=== PATIENT | female | born 1980 | race Caucasian/White ===

== ENCOUNTER 2024-02-24 18:15 | Outpatient (CLI) | payer BC, SELFPAY ==
[2024-02-27 11:15] LABS: HPV Source Cervix; HPV, High Risk by TMA Not Detected
[2024-03-09 17:39] LABS: Pap Test Reviewed by Path Done
== END 2024-02-24 18:16 | disposition home or self-care (01) ==
PROVIDERS: Visit Provider Physician Assistant
DX: Z01.419 Encounter for gynecological examination (general) (routine) without abnormal findings (principal); Z12.4 Encounter for screening for malignant neoplasm of cervix
CPT/HCPCS: 87624; 87625; 88141; 88142

== ENCOUNTER 2024-03-02 07:22 | Outpatient (CLI) | payer BC, SELFPAY ==
--- NOTE | 2024-03-02 07:45 | CRLHL7_ITS ---
For Patients: As a result of the Century Cures Act, medical imaging exams and procedure reports are released immediately into your electronic medical record. You may view this report before your referring provider. If you have questions, please contact your health care provider. BILATERAL SCREENING MAMMOGRAM WITH COMPUTER-AIDED DETECTION AND TOMOSYNTHESIS TECHNIQUE: CC and MLO views were obtained. These mammographic images have been obtained using full-field digital technique. These mammographic images were interpreted with the benefit of computer-aided detection. Breast Tomosynthesis was used in this interpretation. COMPARISON FILM: 09/29/21, 04/06/16. FINDINGS: There are scattered areas of fibroglandular density. IMPRESSION: There is no radiographic evidence for malignancy. ASSESSMENT: BI-RADS Category 1: Negative RECOMMENDATION: Routine screening mammogram in 1 year. A lay language report of this examination will be provided to the patient. Taco Knight M.D. Diagnostic Radiologist [email or web address] SP/Dictated by: Taoc Knight MD @ 03/09/2024 11:13:00 AM (Electronically Signed)
== END 2024-03-02 07:23 | disposition home or self-care (01) ==
LOC: MAMMO 07:22
PROVIDERS: Visit Provider Physician Assistant
DX: Z12.31 Encounter for screening mammogram for malignant neoplasm of breast (principal)
CPT/HCPCS: 77063; 77067; 80061; 82947; 84443

== ENCOUNTER 2024-03-02 07:58 | Outpatient (CLI) | payer BC, SELFPAY | END 2024-03-02 07:59 | disposition home or self-care (01) | LOC: NFLDREF 03-03 15:53 | PROVIDERS: Visit Provider Physician Assistant | DX: Z13.1 Encounter for screening for diabetes mellitus (principal); Z13.6 Encounter for screening for cardiovascular disorders | CPT/HCPCS: 80061; 82947; 84443 ==

== ENCOUNTER 2024-06-03 15:12 | Outpatient (CLI) | payer OTHER, SELFPAY | END 2024-06-03 15:13 | disposition home or self-care (01) | LOC: NFLDREF 06-14 23:22 | PROVIDERS: Visit Provider Nurse Practitioner | DX: N30.01 Acute cystitis with hematuria (principal); B95.7 Other staphylococcus as the cause of diseases classified elsewhere | CPT/HCPCS: 87086 ==

== ENCOUNTER 2024-06-14 18:14 | Emergency (ER) | payer OTHER, SELFPAY ==
--- OUTSIDE RECORDS SUMMARY | 2024-06-14 18:16 | XMS_ITS | Encounter Summary ---
[facility] Organization [facility] Address [address] [place] [address] Care Team Providers Care Marketing Forecaster Name Role Phone Taco Quiroz MD Primary Care Provider Encounter Details Date Type Department Care Team (Late st Contact Info) Description 06/04/2024 E-Visit [facility] [address] [place] [address] Mychart, [place] [address] Social History Tobacco Use Types Packs/Day Years Used Date Smoking Tobacco: Never Smokeless Tobacco: Never Alcohol Use Standard Drinks/Week Comments Not Currently 0 (1 standard drink = 0.6 oz pur e alcohol) occassionally PHQ-2 Answer Date Recorded PHQ-2 Score 0 11/16/2021 Sex and Gender Information Value Date Recorded Sex Assigned at Not on file Gender Identity Not on file Sexual Orientation Not on file documented as of this encounter Plan of Treatment Not on file documented as of this encounter Visit Diagnoses Not on filedocumented in this encounter Care Teams Marketing Forecaster Relationship Specialty [place] [address] [place] [address] PCP - General 12/12/15 documented as of this encounter
--- OUTSIDE RECORDS SUMMARY | 2024-06-14 18:16 | XMS_ITS | Clinical Summary ---
Author Organization [facility] Address [address] [address] Care Team Providers Care Learning Support Aide Name Role Phone Taco Quiroz MD Primary Care Provider [phone] Source Comments You are receiving this document as you are listed as the primary care provider,follow-up provider, or the patient has been referred to you for consultation.This is in compliance with the Medicare and[facility] Hospital[facility] EHR Incentive Program,which states Providers who transition their patient to another setting of careor provider of care or refers their patient to another provider of care shouldprovide summary care record for each transition of care or referral. [employer] Allergies Active Allergy Reactions Criticality Noted Date Comments Cefuroxime Rash 01/26/2005 Levofloxacin Rash 03/02/2009 red rash on skin Soybean Oil Breathing Difficulty High 07/07/2013 SOB with unrefined soybeal oil or soy sauce [place]riticum Aestivum Unknown 07/07/2013 Medications Medication Sig Dispensed Refills Start Date End Date Status omega-3 fatty acids (MAXEPA,FISHOIL) 1000 MG capsule Indications: PN: 09/29/2007 Act quan Cholecalciferol (VITAMIN D3) 5000 UNITS TABS 5,000 Units. Active cycloSPORINE (RESTASIS) 0.05 % eye drop emulsion 11/20/2017 Active ALBUterol sulfate HFA 108 (90 Base) MCG/ACT inhaler INHALE 1-2 PUFFS BY MOUTH EVERY 4 HOURS NEEDED FOR WHEEZING. 1 Each 11/16/2019 Active predniSONE (DELTASONE) 5 MG tablet Take 1 Tablet (5 mg) by mouth daily. 08/18/2020 Active Spacer/Aero-Holdi ng Chambers (COMPACT SPACE CHAMBER) CEE use with inhaler 06/16/2021 Activ e Pediatric Multivitamins-Fl (MULTI-VITAMIN/FL UORIDE) 0.25 MG/ML Take 1 Tablet by mouth daily. Active ACTEMRA ACTPEN 162 MG/0.9ML SOAJ Inject subcutaneously. 02/26/2022 Active tobramycin (TOBREX) 0.3 % eye drop solution Place 1-2 Drops into right eye every 4 hours. 5 mL 07/20/2022 Active budesonide-formot frances (SYMBICORT) 80-4.5 MCG/ACT inhalerIndication s:Moderate persistent asthma without complication (HRC) INHALE 2 PUFFS by mouth TWO TIMES A DAY. RINSE MOUTH/GARGLE AFTER USE. 10.2 g 04/29/2023 Active tirzepatide-weigh t management (ZEPBOUND) 2.5 MG/0.5ML pen injectionIndicati ons:Morbid obesity with body mass index (BMI) of 45.0 to 49.9 in adult (HRC) Inject 2.5 mg subcutaneously one time weekly for 4 weeks 2 mL 06/05/2024 Active tirzepatide-weigh t management (ZEPBOUND) 5 MG/0.5ML pen injection Inject 5 mg subcutaneously one time weekly for 4 weeks Do not start before July 03, 2024. 2 mL 07/03/2024 Active tirzepatide-weigh t management (ZEPBOUND) 7.5 MG/0.5ML pen injection Inject 7.5 mg subcutaneously one time weekly for 4 weeks Do not start before July 31, 2024. 2 mL 07/31/2024 Active tirzepatide-weigh t management (ZEPBOUND) 10 MG/0.5ML pen injection Inject 10 mg subcutaneously one time weekly for 4 weeks Do not start before August 28, 2024. 2 mL 08/28/2024 Active tirzepatide-weigh t management (ZEPBOUND) 12.5 MG/0.5ML pen injection Inject 12.5 mg subcutaneously one time weekly for 4 weeks Do not start before September 25, 2024. 2 mL 09/25/2024 Active tirzepatide-weigh t management (ZEPBOUND) 15 MG/0.5ML pen injection Inject 15 mg subcutaneously one time weekly for 4 weeks Do not start before October 23, 2024. 2 mL 11 10/23/2024 Active tirzepatide-weigh t management (ZEPBOUND) 2.5 MG/0.5ML pen injectionIndicati ons:Morbid obesity with body mass index (BMI) of 45.0 to 49.9 in adult ([facility]) Inject 0.5 mL (2.5 mg) subcutaneously once every week. 2 mL 01/03/2024 06/05/19 25 Discontinued tirzepatide-weigh t management (ZEPBOUND) 5 MG/0.5ML pen injection Inject 0.5 mL (5 mg) subcutaneously once every week. Do not start before January 31, 2024. 2 mL 01/31/2024 06/05/19 25 Discontinued tirzepatide-weigh t management (ZEPBOUND) 7.5 MG/0.5ML pen injection Inject 0.5 mL (7.5 mg) subcutaneously once every week. Do not start before February 28, 2024. 2 mL 02/28/2024 06/05/19 25 Discontinued tirzepatide-weigh t management (ZEPBOUND) 10 MG/0.5ML pen injection Inject 0.5 mL (10 mg) subcutaneously once every week. Do not start before March 27, 2024. 2 mL 03/27/2024 06/05/19 25 Discontinued tirzepatide-weigh t management (ZEPBOUND) 12.5 MG/0.5ML pen injection Inject 0.5 mL (12.5 mg) subcutaneously once every week. Do not start before April 24, 2024. 2 mL 04/24/2024 06/05/19 25 Discontinued tirzepatide-weigh t management (ZEPBOUND) 15 MG/0.5ML pen injection Inject 0.5 mL (15 mg) subcutaneously once every week. Do not start before May 22, 2024. 2 mL 05/22/2024 06/05/19 25 Discontinued Active Problems Problem Noted Date Diagnosed Date Rhe[facility]oid [facility] with negative rheumatoid factor 07/21/2018 Sjogren's syndrome 07/21/2018 Pain of both shoulder joints 03/29/2015 Pain in joint, shoulder region 04/15/2012 Sinusitis, chronic 09/29/2007 Overview (01/02/2017): Sinusitis Recurrent Allergic rhinitis 01/26/2005 Overview (01/02/2017): Rhinitis Allergic NOS Asthma 01/26/2005 Overview (12/19/2021): Pulmonary function test 12/2021 Resolved Problems Problem Noted Date Diagnosed Date Resolved Date Morbid obesity with body mas s index (BMI) of 45.0 to 49.9 in adult 01/02/2023 06/05/2024 Class 3 drug-induced obesity without serious comorbidity with body mass index (BMI) of 50.0 to 59.9 in adult 09/07/2020 06/05/2024 Encounters for administrative purposes 10/14/2012 11/16/2021 Overview (01/02/2017): Encounters for unspecified administrative purpose Encounters for administrative purposes 07/22/2012 11/16/2021 Overview (01/02/2017): Encounters for unspecified administrative purpose Encounters Date Type Department Care Team Description 06/05/2024 8:00 AM CALL BOX WIRER Telemedicine [facility] [place] [address] [place] [address] Payal Ortega PA-C Moderate persistent asthma, unspecified whether complicated (HRC) (Primary Dx); Morbid obesity with body mass index (BMI) of 45.0 to 49.9 in adult (HRC); Sjogren's syndrome, with unspecified organ involvement (HRC); 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) 06/04/2024 E-Visit [facility] [address] [place] [address] Mychart, Generic Provider from Last 3 Months Immunizations Name Administration Dates Next Due Flu Vac (3+ yrs) 02/24/2011 Flu Vac Preserv Free (3+yrs) 02/24/2011,02/12/20 08 Fluzone Qiv Multidose Vial 0.25 (6-35 Mos) 03/09 Influenza IIV4 (Quadrivalent) 0.5mL (85961) 02/10 Influenza, Unspecified Formulation 02/12/2008 Moderna Monovalent Booster 12+ 12/20/2021 PCV20 ([id number]) 12/20/2021 Pfizer Monovalent 12+ Purple Top 02/24/2021,08/11,07/29/2020 TDAP (ADACEL) 09/29/2007 Td 10/26/2003 Td (7+ yrs) 07/21/2018 Td Adult, Unspecified Formulation 07/21/2018 Tdap 2019,08/19/2012 Family History Medical History Relation Name Comments Hemochromatosis Paternal Grandmother Relation Name Status Comments Paternal Grandmother Alive Social History Tobacco Use Types Packs/Day Years Used Date Smoking Tobacco: Never Smokeless Tobacco: Never Tobacco Cessation:Counseling Given: Not Answered Alcohol Use Standard Drinks/Week Comments Not Currently 0 (1 standard drink = 0.6 oz pur e alcohol) occassionally PHQ-2 Answer Date Recorded PHQ-2 Score 0 11/16/2021 Sex and Gender Information Value Date Recorded Sex Assigned at Not on file Gender Identity Not on file Sexual Orientation Not on file Last Filed Vital Signs Vital Sign Reading Time Taken Comments Blood Pressure 125/73 06/05/2024 7:59 AM CALL BOX WIRER Pulse 88 01/02/2023 2:59 PM CDT Temperature 36.2 C (97.1 F) 12/18/2022 12:34 PM CDT Respiratory Rate 18 07/20/2022 3:00 PM CALL BOX WIRER Oxygen Saturation 100% 07/20/2022 3:00 PM CALL BOX WIRER Inhaled Oxygen Concentration - - Weight 113.4 kg (250 lb) 06/05/2024 7:59 AM CALL BOX WIRER Height 157.5 cm (5' 2) 06/05/2024 7:59 AM CALL BOX WIRER Body Mass Index 45.73 06/05/2024 7:59 AM CALL BOX WIRER Plan of Treatment Health Maintenance Due Date Last Done Comments HepB (1) 09/22/1998 Cervical Cancer Screening 05/16/20222019 (Completed), 06/12/2017 (Completed), 09/29/2007, Additional history exists Mammogram 09/29/2022 09/29/2021, 04/06/2016 Asthma ACT 11/15/2022 11/15/2021 (Comp leted), 09/29/2018, 07/21/2018, Additional history exists Adult Preventive Visit 11/17/2023 11/16/2021 COVID-19 Vaccine ( season) 2024 12/20/2021, 02/24/2021, 08/25/2020, Additional history exists Influenza (#1) 2024 04/26/2022, 02/10, 03/09/2020, Additional history exists Diabetes Screening- (based on age and BMI) 03/16/2025 03/16/2022, 11/16/2021 DTaP/Tdap/Td (6 - Tdap) 09/22/2029 09/23/19, 07/21/2018, 07/21/2018, Additional history exists Zoster/Shingles (1 of 2) 09/22/2029 HIV Screening (Preventive Services) Completed 11/21/2007, 04/27/2005 Hep C Screening (Preventive Services) Completed 11/16/2021 Pneumococcal Completed 12/20/2021 HPV Vaccine Aged Out No longer eligi ble based on patient's age to complete this topic HepA Aged Out No longer eligi ble based on patient's age to complete this topic Hib Aged Out No longer eligi ble based on patient's age to complete this topic IPV (Polio) Aged Out No longer eligi ble based on patient's age to complete this topic MCV4 Aged Out No longer eligi ble based on patient's age to complete this topic Procedures Procedure Name Priority Date/Time Associated Diagnosis Comments HGB A1C Routine 03/16/2022 8:59 AM CDT Screening for diabetes mellitus HEPATITIS C ANTIBODY, WITH REFLEX Routine 11/16/2021 8:53 AM CDT Need for hepatitis C screening test MM MAMMOGRAM SCREENING BILAT W 3D NICK W CAD Routine 09/29/2021 3:42 PM CDT HIV ANTIBODY Routine 11/21/2007 4:47 PM CDT ANATOMICAL PATH LIQUID BASED Routine 09/29/2007 9:41 AM CDT from Last 3 Months or Most Recently Relevant to Health Maintenance Results * Hgb A1c (03/16/2022 8:59 AM CDT) Hemoglobin A1C 5.1 <=5.6 % 03/16/2022 5:32 PM CDT [facility] Blood Venipuncture / Unknown 03/16/2022 8:59 AM CDT 03/16/2022 8:59 AM CDT Payal Ortega PA-C LAB_1 [facility] [address] [phone] * Hepatitis C Antibody, with Reflex (11/16/2021 8:53 AM CDT) Hepatitis C Antibody Negative (Non Reactive) Negative (Non Reactive) 11/16/2021 3:22 PM CDT [facility] Comment:Antibodies to HCV no t detected. Does not exclude the possiblity of exposure to HCV. Blood Venipuncture / Unknown 11/16/2021 8:53 AM CDT 11/16/2021 8:53 AM CDT Noble Sanon MD LAB_1 [facility] [address] * MM Mammogram Screening Bilat W 3D Nick W CAD (09/29/2021 3:42 PM CDT) Anatomical Region Laterality Modality Breast Bilateral Mammography Impressions 09/29/2021 4:01 PM CDT : ACR BI-RADS Category 1: Negative RECOMMENDATION: Follow Up Imaging in 12 months - Bilateral The results and recommendations of this examination will be communicated to the patient. Narrative 09/29/2021 4:01 PM CDT MM MAMMOGRAM SCREENING BILAT W 3D NICK W CAD performed on 09/29/21 Compared to: 04/06/2016 [facility] Mammogram Diag Bilat W Nick FINDINGS: Bilateral screening mammogram was performed with the assistance of Computer-Aided Detection and breast tomosynthesis. The breasts have scattered areas of fibroglandular density. There is no radiographic evidence of malignancy. Taco Quiroz MD RAD ROMEL * HIV Antibody (11/21/2007 4:47 PM CDT) HIV 1/HIV 2 Non Reac Non Reac HP CONVERSION 11/21/2007 4:47 PM CDT Melanie Carvajal APRN, CNM LAB_1 Performing Organization Address [facility] Co de Phone Number HP CONVERSION * Pap Smear (09/29/2007 9:41 AM CDT) PAP Smear Liquid Based SEE TEXT No normal range HP CONVERSION Comment: Patient: EBONI TROTTER CERVICAL CYTOLOGY REPORT Pathology # [id number] Date Obtained: Date Received: CYTOLOGIC IMPRESSION: Negative for intraepithelial lesion or malignancy. Verified 10/02/07 by: MB (electronic signature) ADDITIONAL DATA LMP: CLINICAL HIST LIQUID BASED PAP CERVICAL SPECIMEN ADEQUACY: Satisfactory. ENDOCERVICAL CELLS: Present. 09/29/2007 9:41 AM CDT Gwen Carrero LAB_1 Performing Organization Address [facility] Co de Phone Number HP CONVERSION from Last 3 Months or Most Recently Relevant to Health Maintenance Care Teams Learning Support Aide Relationship Specialty [place] [address] [place] [address] PCP - General 12/12/15
--- OUTSIDE RECORDS SUMMARY | 2024-06-14 18:16 | XMS_ITS | Encounter Summary ---
Author Organization [facility] Address [address] [place] [id number] Care Team Providers Care Unemployment Claims Adjudicator Name Role Phone Taco Quiroz MD Primary Care Provider [phone] Reason for Referral * Medication Prior Authorization - Pending Review Specialty Diagnoses / Procedures Referred By Dung bojorquez Referred To Contact Diagnoses Morbid obesity with body mass index (BMI) of 45.0 to 49.9 in adult (HRC) Payal Ortega PA-C [address] [place] [address] Referral ID Status Reason Start Date Expiration Date V isits Requested Visits Authorized [id number] Pending Review 1 1 H MENDER Reason for Visit * Reason Comments Video Visit Follow-up Encounter Details Date Type Department Care Team (Late st Contact Info) Description 06/05/2024 8:00 AM CLOTH MENDER Telemedicine [facility] [address] [facility] [address] [place] [address] Payal Ortega PA-C [address] [place], [place] [phone] Moderate persistent asthma, unspecified whether complicated (HRC) (Primary Dx); Morbid obesity with body mass index (BMI) of 45.0 to 49.9 in adult (HRC); Sjogren's syndrome, with unspecified organ involvement (HRC); 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) Social History Tobacco Use Types Packs/Day Years [...] on file documented as of this encounter Last Filed Vital Signs Vital Sign Reading Time Taken Comments Blood Pressure 125/73 06/05/2024 7:59 AM CLOTH MENDER Pulse - - Temperature - - Respiratory Rate - - Oxygen Saturation - - Inhaled Oxygen Concentration - - Weight 113.4 kg (250 lb) 06/05/2024 7:59 AM CLOTH MENDER Height 157.5 cm (5' 2) 06/05/2024 7:59 AM CLOTH MENDER Body Mass Index 45.73 06/05/2024 7:59 AM CLOTH MENDER documented in this encounter Progress Notes * Payal Ortega PA-C - 06/05/2024 8:00 AM CST MEDICAL WEIGHT MANAGEMENT PROGRESS NOTE CHIEF COMPLAINT: Tawnya Damon is a 43 y.o. female with chronic medical problems including asthma, rheumatoid arthritis, Sjogren syndrome, on chronic prednisone, who seeks to treat the following obesity-associated medical conditions by aggressive management of weight: obesity Intake 03/14/22 INTERIM HISTORY: Weight at last visit: 269 lbs Current weight: 250 lbs (-19 lbs) Feeling well overall. More energy noted. Was up to Zepbound 10 mg weekly in April, but has not been able to obtain medication since then due to insurance change. Reports her new insurance will cover Zepbound but needs a PA. Still swimming at the [facility] when she can. Has free weights at home but doesn't use regularly. RD no longer in network. Previous medication trials for weight loss: - Topiramate for migraines: brain fog - Phentermine: no weight loss benefit - Metformin: can't recall why she was on this but reports not tolerating - Wellbutrin/naltrexone: limited efficacy What are you doing for exercise?: Walking, Swimming, Stationary bike [facility] Assessment: Updating Your Care Team 1. Have you been working on any lifestyle goals since your last visit?: Yes 4. How many hours of sleep to you get per night?: 6-7 hours 7. Do you drink sugar-sweetened beverages (regular soda or sweetened coffee or tea)?: Yes 8. What would you like to discuss today?: Follow up/ prior auth for meds Post-surgical information: 5. Does the patient snack?: Pos The patient notes the following snacking habits: Fruit/ crackers/ nuts/ cheese Bariatric Weight History and Calculations Weight History Age at Onset of Obesity: 19 Highest Adult Weight: 290 lb Preferred Weight: 160 lb Lowest Adult Weight: 160 lb At what weight would you not be disappointed?: 210 lb Starting Weight: 290 lb Current Weight: 250 lb Height (in): 62 Weight Calculations Excess Weight: 173 lb Current Weight Loss: 40 lb Goal Weight: 117 lb Starting BMI: 53.15 Percent Exess Weight Loss: 23 Current BMI: 45.82 Percent Totoal Body Weight Loss: 14 WEIGHT HISTORY: Attributes struggles to genetics, , inactivity secondary to joint pain, and prednisone use. Since May, she has been needing more bursts of prednisone for ongoing symptoms. Awaiting results from testing with fixing carpenter. She felt her healthiest around 170 lbs. Her current weight is her highest. In the past was able to maintain weight with lifestyle changes. Current Medications with the potential side effect of weight gain include the following: Prednisone (weight gain with this) Patient denies increased anxiety, palpitations, tremors, difficulty sleeping, and personal histories of: glaucoma, nephrolithiasis, kidney disease, pancreatitis, and seizure. Denies personal or family history of medullary thyroid carcinoma or MEN type 2. REVIEW OF SYSTEMS: Control: tubal ligation Patient is experiencing the following symptoms/problems: GERD/Heartburn, Joint Pain MEDICATIONS: Outpatient Medications Prior to Visit Medication Sig Dispense Refill ACTEMRA ACTPEN 162 MG/0.9ML SOAJ Inject subcutaneously. ALBUterol sulfate HFA 108 (90 Base) MCG/ACT inhaler INHALE 1-2 PUFFS BY MOUTH EVERY 4 HOURS NEEDED FOR WHEEZING. 1 Each 0 budesonide-formoterol (SYMBICORT) 80-4.5 MCG/ACT inhaler INHALE 2 PUFFS by mouth TWO TIMES A DAY. RINSE MOUTH/GARGLE AFTER USE. 10.2 g 0 Cholecalciferol (VITAMIN D3) 5000 UNITS TABS 5,000 Units. cycloSPORINE (RESTASIS) 0.05 % eye drop emulsion omega-3 fatty acids (MAXEPA,FISHOIL) 1000 MG capsule Indications: PN: Pediatric Multivitamins-Fl (MULTI-VITAMIN/FLUORIDE) 0.25 MG/ML Take 1 Tablet by mouth daily. predniSONE (DELTASONE) 5 MG tablet Take 1 Tablet (5 mg) by mouth daily. Spacer/Aero-Holding Chambers (COMPACT SPACE CHAMBER) CEE use with inhaler tirzepatide-weight management (ZEPBOUND) 10 MG/0.5ML pen injection Inject 0.5 mL (10 mg) subcutaneously once every week. Do not start before March 27, 2024. 2 mL 0 tirzepatide-weight management (ZEPBOUND) 12.5 MG/0.5ML pen injection Inject 0.5 mL (12.5 mg) subcutaneously once every week. Do not start before April 24, 2024. 2 mL 0 tirzepatide-weight management (ZEPBOUND) 15 MG/0.5ML pen injection Inject 0.5 mL (15 mg) subcutaneously once every week. Do not start before May 22, 2024. 2 mL 11 tirzepatide-weight management (ZEPBOUND) 2.5 MG/0.5ML pen injection Inject 0.5 mL (2.5 mg) subcutaneously once every week. 2 mL 0 tirzepatide-weight management (ZEPBOUND) 5 MG/0.5ML pen injection Inject 0.5 mL (5 mg) subcutaneously once every week. Do not start before January 31, 2024. 2 mL 0 tirzepatide-weight management (ZEPBOUND) 7.5 MG/0.5ML pen injection Inject 0.5 mL (7.5 mg) subcutaneously once every week. Do not start before February 28, 2024. 2 mL 0 tobramycin (TOBREX) 0.3 % eye drop solution Place 1-2 Drops into right eye every 4 hours. 5 mL 0 No facility-administered medications prior to visit. ALLERGIES: Allergies Allergen Reactions Soybean Oil Breathing Difficulty SOB with unrefined soybeal oil or soy sauce Cefuroxime Rash Levofloxacin Rash red rash on skin Triticum Aestivum Unknown PHYSICAL EXAM: VITAL SIGNS: BP 125/73 Ht 1.575 m (5' 2) Wt 113.4 kg (250 lb) BMI 45.73 kg/m?? Wt Readings from Last 3 Encounters: 06/05/24 113.4 kg (250 lb) 01/03/24 122 kg (269 lb) 05/16/23 122 kg (269 lb) GENERAL: The patient appears in no acute distress. PSYCHIATRIC: Alert and oriented x 3. Affect is appropriate. Labs: None available at time of appointment. ASSESSMENT/PLAN: We will continue to treat the following obesity-associated medical conditions and conditions exacerbated by or contributing to weight gain by aggressive management of weight: ICD-10-CM 1. Moderate persistent asthma, unspecified whether complicated ([facility]) J45.40 2. Morbid obesity with body mass index (BMI) of 45.0 to 49.9 in adult ([facility]) E66.01 Z68.42 3. Sjogren's syndrome, with unspecified organ involvement ([facility]) M35.00 4. Rheumatoid arthritis of multiple sites with negative rheumatoid factor ([facility]) M06.09 Plan for management includes the following: -Nutrition: Meet with nutrition: find out if she has coverage for RD services. . -Exercise: Continue swimming. Try using free weights at home. -Medications: Restart Zepbound titration. New PA initiated for new insurance. Follow up with me: in 5-6 months. Quick schedule link sent to patient. Payal Ortega PA-C Billing based on: Time Total time for the visit was 20 minutes including, but not limited to, [id number] time spent reviewing records, counseling, and coordination of care. This visit was conducted via video. Location of clinician clinic. Location of patient home. At the beginning of the visit, I discussed with the patient/parent that this visit is a telehealth visit that will be billed to their insurance. I reviewed potential benefits, risks, and confidentiality of telehealth visits. explained that the appropriateness of telehealth visits is determined by the provider and that patient may need to be seen in clinic in the future. They consented to proceed. H MENDER documented in this encounter Nursing Notes * Marion Mcarthur CMA - 06/05/2024 8:00 AM CST Patient has completed mobile check in process. Last seen on 01/03/24 with recorded weight of 269 lbs. Weight History: Bariatric Weight History and Calculations Weight History Age at Onset of Obesity: 19 Highest Adult Weight: 290 lb Preferred Weight: 160 lb Lowest Adult Weight: 160 lb At what weight would you not be disappointed?: 210 lb Starting Weight: 290 lb Current Weight: 250 lb Height (in): 62 Weight Calculations Excess Weight: 173 lb Current Weight Loss: 40 lb Goal Weight: 117 lb Starting BMI: 53.15 Percent Exess Weight Loss: 23 Current BMI: 45.82 Percent Totoal Body Weight Loss: 14 Measurements Do you have a scale? YES - 250 lb. Do you have a BP cuff? YES - 125/73 Eating patterns Patient is experiencing the following symptoms/problems: GERD/Heartburn, Joint Pain Medications: reviewed by patient. Compliance: Yes Side effects: NO Patient would like to discuss: Follow up/ prior auth for meds Marion Mcarthur CMA 7:59 AM 06/05/2024 H MENDER documented in this encounter Plan of Treatment Not on file documented as of this encounter Visit Diagnoses Diagnosis Moderate persistent asthma, unspecified whether complicated (HRC)- Primary Morbid obesity with body mass index (BMI) of 45.0 to 49.9 in adult (HRC) Sjogren's syndrome, with unspecified organ involvement (HRC) 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) documented in this encounter Care Teams Unemployment Claims Adjudicator Relationship Specialty [place] [address] [place] [address] PCP - General 12/12/15 documented as of this encounter
--- OUTSIDE RECORDS SUMMARY | 2024-06-14 18:17 | XMS_ITS | Continuity of Care Document ---
Author Organization [facility] Address [address] [place] [address] Phone Care Team Providers Care Poundmaster Name Role Phone Dayna Dhillon MD Unavailable Unavailable Allergies, Adverse Reactions, Alerts Substance Reaction Status Criticality CEFUROXIME AXETIL Active No Informa tion Medications Medication Instructions Dosage Effective Dates (start - stop) Status Comments nabumetone 750 mg tablet take 1 Tablet by oral route 2 times every day with food - Active Switching from Piroxicam to Nabumetone Medrol 4 mg tablet take 2 tablets by oral route every day - Active cycloSPORINE Ophthalmic Emulsion 0.05 % PLACE 1 DROP INTO EACH EYE BY OPHTHALMIC ROUTE ONCE DAILY. - Active ACTEMRA ACTPEN 162MG/0.9ML SOAJ INJECT THE CONTENTS OF 1 AUTOINJECTOR PEN UNDER THE SKIN ONCE WEEKLY - Active SYMBICORT (unknown strength) inhale 2 puff by inhalation route 2 times every day in the morning and evening Not Available - Active Vitamin B-12 250 mcg tablet - Active Vitamin D3 5,000 unit tablet take 1 Tablet by Oral route every day 1 Tablet - Active Ventolin HFA 90 mcg/actuation aerosol inhaler inhale 2 puff by inhalation route every 4 - 6 hours as needed - Active multivitamin tablet take 1 tablet by oral route every day with food - Active Procedures Procedure Date Office/Outpatient Visit, Est Office/Outpatient Visit, Est Office/Outpatient Visit, Est Office/Outpatient Visit, Est Office/Outpatient Visit, Est Office/Outpatient Visit, Est Office/Outpatient Visit, Est Office/Outpatient Visit, Est Routine Venipuncture Assay Of Serum Albumin Assay Of Creatinine Transferase (Ast) (Sgot) Alanine Amino (Alt) (Sgpt) Complete Cbc WAuto Diff Wbc Tixagev and cilgav inj Tixagev and cilgav inj Office/Outpatient Visit, Est Routine Venipuncture Assay Of Serum Albumin Assay Of Creatinine Transferase (Ast) (Sgot) Alanine Amino (Alt) (Sgpt) Vitamin D 25 Hydroxy Complete Cbc WAuto Diff Wbc Office/Outpatient Visit, Est Routine Venipuncture Rbc Sed Rate, Nonautomated Assay Of Serum Albumin Assay Of Creatinine Transferase (Ast) (Sgot) Alanine Amino (Alt) (Sgpt) CReactive Protein Vitamin D 25 Hydroxy Complete Cbc WAuto Diff Wbc Office/Outpatient Visit, Est Office/Outpatient Visit, Est Office/Outpatient Visit, Est Routine Venipuncture Specimen Handling Assay Of Serum Albumin Assay Of Creatinine Transferase (Ast) (Sgot) Alanine Amino (Alt) (Sgpt) Samson-29-2021 Complete Cbc WAuto Diff Wbc Office/Outpatient Visit, Est Office/Outpatient Visit, Est Office/Outpatient Visit, Est Office/Outpatient Visit, Est Office/Outpatient Visit, Est Office/Outpatient Visit, Est Office/Outpatient Visit, Est Routine Venipuncture Assay Of Serum Albumin Assay Of Creatinine Transferase (Ast) (Sgot) Alanine Amino (Alt) (Sgpt) Assay Of Magnesium Complete Cbc WAuto Diff Wbc Self-Mgmt Educ & Train, 1 Pt Routine Venipuncture Specimen Handling Assay Of Serum Albumin Assay Of Creatinine Transferase (Ast) (Sgot) Alanine Amino (Alt) (Sgpt) Complete Cbc WAuto Diff Wbc Office/Outpatient Visit, Est Office/Outpatient Visit, Est Routine Venipuncture Specimen Handling Assay Of Serum Albumin Assay Of Creatinine Transferase (Ast) (Sgot) Alanine Amino (Alt) (Sgpt) Complete Cbc WAuto Diff Wbc Office/Outpatient Visit, Est Routine Venipuncture Rbc Sed Rate, Nonautomated CReactive Protein Assay Of Serum Albumin Assay Of Creatinine Transferase (Ast) (Sgot) Alanine Amino (Alt) (Sgpt) Complete Cbc WAuto Diff Wbc No Charge Nurse Visit Office/Outpatient Visit, Est Routine Venipuncture Specimen Handling Assay Of Serum Albumin Assay Of Creatinine Transferase (Ast) (Sgot) Alanine Amino (Alt) (Sgpt) Tb Test, Cell Immun Measure Complete Cbc WAuto Diff Wbc Office/Outpatient Visit, Est Routine Venipuncture Assay Of Serum Albumin Assay Of Creatinine Transferase (Ast) (Sgot) Alanine Amino (Alt) (Sgpt) Complete Cbc WAuto Diff Wbc Office/Outpatient Visit, Est Office/Outpatient Visit, New Routine Venipuncture Complete Cbc WAuto Diff Wbc Rbc Sed Rate, Nonautomated Assay Of Creatinine Assay Of Ck (Cpk) CReactive Protein Antinuclear Antibodies CCP Antibody Rheumatoid Factor, IGM Rheumatoid Factor, IGG, IGA Advance Directives Directive Yes / No Effective Date File Name No Information Encounters Encounter Description Practice Location Reason(s) For Visit Diagnoses Date Provider Providers Copied on Encounter [facility], [address], [place], [address], tel:[phone] [facility] , No Information 5 Jacquie Mcintosh. [facility] [address], [place], [address], [place]. tel:[phone] Office/Outpa tient Visit, Est [facility], [address], [place], [address], [place] tel:[phone] Telehealth Sjogren syndrome with keratoconjun ctivitisOthe r prison (current) drug therapyRheum atoid arthritis w/o rheumatoid factor, multiple sitesRas 4 Jacquie Mcintosh. [facility] [address], [place], [address], [place]. tel:[phone] Referring Provider: Dayna Fajardo, [facility] [address], [place], [address]. tel:[phone] [facility], [address], [place], [address], [place] tel:[phone] [facility] , No Information 4 Jacquie Mcintosh. [facility] [address], [place], [address], [place]. tel:[phone] [facility], [address], [place], [address], [place] tel:[phone] [facility] , No Information 4 Jacquie Mcintosh. [facility] [address], [place], [address], [place]. tel:[phone] Office/Outpa tient Visit, Est [facility], [address], [place], [address], [place] tel:[phone] Telehealth Sjogren syndrome with keratoconjun ctivitisOthe r prison (current) drug therapyRayna ud's syndrome without gangreneRheu matoid arthritis w/o rheumatoid factor, multiple sitesPsorias is 4 Jacquie Mcintosh. [facility] [address], [place], [address], [place]. tel:[phone] Referring Provider: Dayna Fajardo, [facility] [address], [place], [address]. tel:[phone] Office/Outpa tient Visit, Est [facility], [address], [place], [address], [place] tel:[phone] [facility] Pain in right hipSjogren syndrome with keratoconjun ctivitisOthe r prison (current) drug therapyRayna ud's syndrome without gangreneOthe r psoriatic arthropathy 4 Jacquie Mcintosh. [facility] [address], [place], [address], [place]. tel:[phone] Referring Provider: Dayna Fajardo, [facility] [address], [place], [address]. tel:[phone] Office/Outpa tient Visit, Est [facility], [address], [place], [address], [place] tel:[phone] Telehealth Rheumatoid arthritis without rheumatoid factor, multiple sitesPain in right hipSjogren syndrome with keratoconjun ctivitisOthe r prison (current) drug therapy 4 Jacquie Mcintosh. [facility] [address], [place], [address], [place]. tel:[phone] Referring Provider: Dayna Fajardo, [facility] [address], [place], [address]. tel:[phone] Office/Outpa tient Visit, Est [facility], [address], [place], [address], [place] tel:[phone] Telehealth Rheumatoid arthritis without rheumatoid factor, multiple sitesSjogren syndrome with keratoconjun ctivitisOthe r local company intermodal truck driver (current) drug therapyPain in right hip Sep-0 3 Jacquie Mcintosh. [facility] [address], [place], [address], [place]. tel:[phone] Referring Provider: Dayna Fajardo, [facility] [address], [place], [address]. tel:[phone] Office/Outpa tient Visit, Est [facility], [address], [place], [address], [place] tel:[phone] [facility] Rheumatoid arthritis without rheumatoid factor, multiple sitesOther prison (current) drug therapyPain in left ankleSjogren syndrome with keratoconjun ctivitis 3 Jacquie Mcintosh. [facility] [address], [place], [address], [place]. tel:[phone] Referring Provider: Dayna Fajardo, [facility] [address], [place], [address]. tel:[phone] Office/Outpa tient Visit, Est [facility], [address], [place], [address], [place] tel:[phone] Telehealth Rheumatoid arthritis without rheumatoid factor, multiple sitesItchOth er prison (current) drug therapy 3 Jacquie Mcintosh. [facility] [address], [place], [address], [place]. tel:[phone] Referring Provider: Dayna Fajardo, [facility] [address], [place], [address]. tel:[phone] Office/Outpa tient Visit, Est [facility], [address], [place], [address], [place] tel:[phone] [facility] Rheumatoid arthritis without rheumatoid factor, multiple sitesOther local company intermodal truck driver (current) drug therapyPerso nal history of immunosuppre ssion therapyItch 2 Jacquie Mcintosh. [facility] [address], [place], [address], [place]. tel:[phone] Referring Provider: Dayna Fajardo, [facility] [address], [place], [address]. tel:[phone] [facility], [address], [place], [address], [place] tel:[phone] [facility] Personal history of immunosuppre ssion therapy 2 Jacquie Mcintosh. [facility] [address], [place], [address], [place]. tel:[phone] Referring Provider: Dayna Fajardo, [facility] [address], [place], [address]. tel:[phone] [facility], [address], [place], [address], [place] tel:[phone] [facility] Personal history of immunosuppre ssion therapy Jan-0 2 Jacquie Mcintosh. [facility] [address], [place], [address], [place]. tel:[phone] Office/Outpa tient Visit, Est [facility], [address], [place], [address], [place] tel:[phone] [facility] Rheumatoid arthritis without rheumatoid factor, multiple sitesFatigue Vitamin D deficiency, unspecifiedO ther local company intermodal truck driver (current) drug therapy 2 Jacquie Mcintosh. [facility] [address], [place], [address], [place]. tel:[phone] Referring Provider: Dayna Fajardo, [facility] [address], [place], [address]. tel:[phone] Office/Outpa tient Visit, Est [facility], [address], [place], [address], [place] tel:[phone] [facility] Rheumatoid arthritis without rheumatoid factor, multiple sitesFatigue Vitamin D deficiencyOt her local company intermodal truck driver (current) drug therapy 2 Jacquie Mcintosh. [facility] [address], [place], [address], [place]. tel:[phone] Referring Provider: Dayna Fajardo, [facility] [address], [place], [place], [facility]. tel:[phone] Office/Outpa tient Visit, Est [facility], [address], [place], [address], [place] tel:[phone] Telehealth Rheumatoid arthritis without rheumatoid factor, multiple sitesAcute bronchitisOt her prison (current) drug therapy 2 Jacquie Mcintosh. [facility] [address], [place], [address], [place]. tel:[phone] Referring Provider: Dayna Fjaardo, [facility] [address], [place], [address]. tel:[phone] Office/Outpa tient Visit, Est [facility], [address], [place], [address], [place] tel:[phone] Telehealth Rheumatoid arthritis without rheumatoid factor, multiple sitesOther local company intermodal truck driver (current) drug therapy 1 Jacquie Mcintosh. [facility] [address], [place], [address], [place]. tel:[phone] Referring Provider: Dayna Fajardo, [facility] [address], [place], [address]. [phone] Office/Outpa tient Visit, Est [facility], [address], [place], [address], [place] tel:[phone] [facility] Rheumatoid arthritis without rheumatoid factor, multiple sitesSicca syndrome with keratoconjun ctivitisCoun seling, unspecifiedA bnormal weight gainOther local company intermodal truck driver (current) drug therapy Oct- 1 Jacquie Mcintosh. [facility] [address], [place], [place], [facility], [place]. tel:[phone] Referring Provider: Dayna Fajardo, [facility] [address], [place], [place], [facility]. [phone] Office/Outpa tient Visit, Est [facility], [address], [place], [address], [place] tel:[phone] Telehealth Rheumatoid arthritis without rheumatoid factor, multiple sitesOther prison (current) drug therapy 1 Jacquie Mcintosh. [facility] [address], [place], [address], [place]. tel:[phone] Referring Provider: Dayna Fajardo, [facility] [address], [place], [address]. tel:[phone] Office/Outpa tient Visit, Est [facility], [address], [place], [address], [place] tel:[phone] Telehealth Rheumatoid arthritis without rheumatoid factor, multiple sitesSicca syndrome with keratoconjun ctivitisCoun seling, unspecifiedO ther local company intermodal truck driver (current) drug therapy Feb-0 4-202 1 Jacquie Mcintosh. [facility] [address], [place], [address], [place]. tel:[phone] Referring Provider: Dayna Fajardo, [facility] [address], [place], [address]. tel:[phone] Office/Outpa tient Visit, Est [facility], [address], [place], [address], [place] tel:[phone] Telehealth Rheumatoid arthritis w/o rheumatoid factor, multiple sitesCounsel ing, unspecifiedO ther local company intermodal truck driver (current) drug therapy 0 Jacquie Mcintosh. [facility] [address], [place], [address], [place]. tel:[phone] Referring Provider: Dayna Fajardo, [facility] [address], [place], [address]. tel:[phone] Office/Outpa tient Visit, Est [facility], [address], [place], [address], [place] tel:[phone] Telehealth Rheumatoid arthritis w/o rheumatoid factor, multiple sitesPregnan t stateOther prison (current) drug therapy 0 Jacquie Mcintosh. [facility] [address], [place], [address], [place]. tel:[phone] Referring Provider: Dayna Fajardo, [facility] [address], [place], [address]. tel:[phone] Office/Outpa tient Visit, Est [facility], [address], [place], [address], [place] tel:[phone] [facility] Rheumatoid arthritis w/o rheumatoid factor, multiple sitesCounsel ing, unspecifiedO ther prison (current) drug therapy 9 Jacquie Mcintosh. [facility] [address], [place], [address], [place]. tel:[phone] Referring Provider: Dayna Fajardo, [facility] [address], [place], [address]. tel:[phone] Office/Outpa tient Visit, Est [facility], [address], [place], [address], [place] tel:[phone] [facility] Rheumatoid arthritis w/o rheumatoid factor, multiple sitesOther local company intermodal truck driver (current) drug therapy 9 Jacquie Mcintosh. [facility] [address], [place], [address], [place]. tel:[phone] Referring Provider: Dayna Fajardo, [facility] [address], [place], [address]. tel:[phone] Office/Outpa tient Visit, Est [facility], [address], [place], [address], [place] tel:[phone] [facility] Rheumatoid arthritis w/o rheumatoid factor, multiple sitesSpasmOt her local company intermodal truck driver (current) drug therapy 9 Jacquie Mcintosh. [facility] [address], [place], [address], [place]. tel:[phone] Referring Provider: Dayna Fajardo, [facility] [address], [place], [address]. tel:[phone] [facility], [address], [place], [address], [place] tel:[phone] [facility] Rheumatoid arthritis w/o rheumatoid factor, multiple sitesCounsel ing, unspecifiedF atigueOther prison (current) drug therapy 9 Jacquie Mcintosh. [facility] [address], [place], [address], [place]. tel:[phone] Referring Provider: Dayna Fajardo, [facility] [address], [place], [address]. tel:[phone] Office/Outpa tient Visit, Est [facility], [address], [place], [address], [place] tel:[phone] [facility] No Information 9 Jacquie Mcintosh. [facility] [address], [place], [address], [place]. tel:[phone] Referring Provider: Dayna Fajardo, [facility] [address], [place], [address]. tel:[phone] Office/Outpa tient Visit, Est [facility], [address], [place], [address], [place] tel:[phone] [facility] Rheumatoid arthritis w/o rheumatoid factor, multiple sitesSicca syndrome with keratoconjun ctivitisCoun seling, unspecifiedO ther prison (current) drug therapy 8 Jacquie Mcintosh. [facility] [address], [place], [address], [place]. tel:[phone] Referring Provider: Dayna Fajardo, [facility] [address], [place], [address]. tel:[phone] Office/Outpa tient Visit, Est [facility], [address], [place], [address], [place] tel:[phone] [facility] Seronegative RA, multiple sitesSicca syndrome with keratoconjun ctivitisOthe r local company intermodal truck driver (current) drug therapyBody mass index (BMI) 40.0-44.9, adult Arash- 8 Jacquie Mcintosh. [facility] [address], [place], [address], [place]. tel:[phone] Referring Provider: Dayna Fajardo, [facility] [address], [place], [address]. tel:[phone] [facility], [address], [place], [address], [place] tel:[phone] [facility] , Seronegative RA, multiple sites 8 Lala Lafleur. [facility] [address], [place], [address], [place]. tel:[phone] Referring Provider: Miquel Barrientos, [facility] [address], [place], [address]. tel:[phone] Office/Outpa tient Visit, Est [facility], [address], [place], [address], [place] tel:[phone] [facility] Seronegative RA, multiple sitesSicca syndrome with keratoconjun ctivitisOthe r prison (current) drug therapy 8 Jacquie Mcintosh. [facility] [address], [place], [address], [place]. tel:[phone] Referring Provider: Dayna Fajardo, [facility] [address], [place], [address]. tel:[phone] Office/Outpa tient Visit, Est [facility], [address], [place], [address], [place] tel:[phone] [facility] Seronegative RA, multiple sitesSicca syndrome with keratoconjun ctivitisOthe r prison (current) drug therapy 8 Jacquie Mcintosh. [facility] [address], [place], [address], [place]. tel:[phone] Referring Provider: Dayna Fajardo, [facility] [address], [place], [address]. tel:[phone] Office/Outpa tient Visit, Est [facility], [address], [place], [address], [place] tel:[phone] [facility] Seronegative RA, multiple sitesSicca syndrome with keratoconjun ctivitisOthe r prison (current) drug therapy 7 Jacquie Mcintosh. [facility] [address], [place], [address], [place]. tel:[phone] Referring Provider: Dayna Fajardo, [facility] [address], [place], [address]. tel:[phone] Office/Outpa tient Visit, New [facility], [address], [place], [address], [place] tel:[phone] [facility] Inflammatory polyarthropa thyFatigueSi cca syndrome with keratoconjun ctivitisMyal giaRash Jacquie Mcintosh. [facility] [address], [place], [address], [place]. tel:[phone] Referring Provider: Dayna Fajardo, [facility] [address], [place], [address]. tel:[phone] Family History Family Member Type Diagnosis Age At Onset Maternal grandmother Problem (finding) osteoarthritis Paternal grandfather Problem (finding) diabetes mellit us type 2 Paternal grandmother Problem (finding) hypertension Mother Problem (finding) asthma Sister Problem (finding) hypothyroidism Paternal aunt Problem (finding) hemochromatosis Immunizations Vaccine Date Status Comments COVID-19 Pfizer administered Note: 2020 ; Source: Other Provider Payers Payer name Insurance type Covered democrat ID Authoriza tion(s) [employer] BL [id number] Social History Type Description Quantity Date Captured Comments Sex Female Smoking Status No Information Chief Complaint And Reason For Visit No Information Reason For Referral Reason For Referral No Information Plan Of Treatment Date Type Action Status Goal Lifestyle education regardin g diet completed History Of Present Illness Encounter Date Complaint History Of Prese nt Illness No Information Functional Status Date Functional Assessmen t No Information Instructions Date Instruction Surendra giron Lifestyle education regarding di et Related to Body mass index (BMI) 40.0-44.9, adult Assessments Type Assessment Date No Information Patient Care Teams Name Effective Dates (start - stop) Status Members No Information
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
[2024-06-14 18:44] VITALS: BP 134/81; PULSE 104; RESP 18; TEMP 36.9; O2SAT 98; BMI 45.7
[2024-06-14 19:08] LABS: Appearance Urine Clear (Clear); Bilirubin Urine Negative (Negative); Blood Urine Negative (Negative); Color Urine Yellow (Yellow); Glucose Urine Negative (Negative); Ketones Urine Negative (Negative); Leukocyte Esterase Urine Negative (Negative); Nitrite Urine Negative (Negative); Protein Urine Negative (Negative); Urobilinogen Urine 0.2 (0.2-1.0)
[2024-06-14 19:17] LABS: Bacteria Urine Many; RBC Urine 0-2 (0-2); Squamous Epithelial Cell Urine Many (None-Few); WBC Urine 0-2 (0-5)
--- NOTE | 2024-06-14 19:20 | ED_ITS ---
HPI - General Adult General Chief complaint: Urogenital Problems, Female Stated complaint: UTI complications, abdominal pain Time Seen by Provider: 06/14/24 19:13 History of Present Illness HPI narrative: This 43-year-old female is describing symptoms of dysuria including increased frequency and sense of incomplete voiding. She had similar symptoms a couple weeks ago and was treated with Bactrim. About 3 or 4 days after finishing this medicine her symptoms have returned. She arrives here with normal vital signs except for borderline tachycardia. She does describe diffuse abdominal pain and back pain. Related Data Home Medications ?Medication ?Instructions ?Recorded ?Confirmed tocilizumab 162 mg/0.9 mL mg subcut 04/22/22 06/03/24 subcutaneous pen injector (Actemra ACTPen) budesonide-formoterol HFA 80 2 puff inhalation BID 11/29/22 06/14/24 mcg-4.5 mcg/actuation aerosol inhaler (Symbicort) methylprednisolone 4 mg tablet 4 mg PO BID 02/24/24 06/14/24 multivitamin 1 tab PO QAM 02/24/24 06/14/24 Previous Rx's ?Medication ?Instructions ?Recorded albuterol sulfate 90 mcg/actuation 2 puff inhalation Q4-6H PRN 02/27/24 aerosol inhaler shortness of breath or wheezing #8.5 grams oxybutynin chloride 5 mg 5 mg PO DAILY #20 tabs 06/14/24 tablet,extended release 24 hr Allergies Allergy/AdvReac Type Severity Reaction Status Date / Time cefdinir Allergy Unknown Verified 06/14/24 18:42 cefuroxime Allergy Verified 06/14/24 18:42 levofloxacin Allergy Verified 06/14/24 18:42 Review of Systems Status of ROS: Reports: 10 or more systems reviewed and unremarkable except as noted in History and below Narrative: Constitutional: No fevers, no weight gain or loss. Eyes: No discharge. No vision changes. HENT: No congestion, no sore throat, no ear pain. Cardiovascular: No chest pain, no palpitations. Respiratory: No shortness of breath, no wheezes, no cough. Gastrointestinal: No vomiting, no diarrhea. Genitourinary: Increased frequency and sense of incomplete voiding. Musculoskeletal: Normal range of motion. Skin: No rashes, no pruritis. Neurological: No dizziness, weakness, sensory change, speech change. Endo/Heme/Allergies: No bruising or bleeding. No polydipsia. Pysch: no suicidality, no anxiety, no insomnia. All other systems reviewed and are negative. PFSH PFSH Medical History Normal spontaneous vaginal delivery ?O80 - Encounter for full-term uncomplicated delivery (ICD-10) Migraine headache ?G43.909 - Migraine, unspecified, not intractable, without status migrainosus (ICD-10) History of in vitro fertilization ?Z98.890 - Other specified postprocedural states (ICD-10) Ear pain ?H92.09 - Otalgia, unspecified ear (ICD-10) Sore throat ?J02.9 - Acute pharyngitis, unspecified (ICD-10) Surgical History History of shoulder surgery ?Z98.890 - Other specified postprocedural states (ICD-10) History of tubal ligation ?Z98.51 - Tubal ligation status (ICD-10) Family History Mother Breast cancer, Onset Age: 63 Paternal Grandfather Colon cancer Social History Narrative: Health Care Admin Nonsmoker Rare alcohol use What is your current living situation?: I presently have a place to live Problems where you live: no known problems In the past 12 months, utilities in danger of being shut off: no In past 12 months, lack of transportation kept you from medical appts, meetings, work, or getting things needed for daily living: no In the past 12 mos, have been you worried that your food would run out before you had money to buy more?: never true In the past 12 mos, the food you bought just didn't last and you didn't have money to buy more?: never true Smoking Status: Never smoker Non-prescribed substance use: denies use How often does anyone, including family, friends and others, physically hurt you : never How often does anyone, including family, friends and others, insult or talk down to you: never How often does anyone, including family, friends and others, threaten you with harm: never How often does anyone, including family, friends and others, scream or curse at you: never Exam Narrative: Exam Narrative: Constitutional: Well-developed, well-nourished, no acute distress. HEENT: Normocephalic, atraumatic. Neck: Normal range of motion. Nontender. Supple. Heart: Regular. No murmurs. Normal rate. Intact distal pulses. Lungs: Clear to auscultation. No chest discomfort. No wheezes, rhonchi, or rales. Abdomen: Normal bowel sounds. Diffuse abdominal pain. No rebound tenderness. Genitalia: Deferred. Back: No midline tenderness. Normal range of motion. Extremities: Normal range of motion. No injury. Skin: Intact. No rash. Warm. No erythema or pallor. Neurologic: No altered sensation. No weakness. Alert and oriented. Psychiatric: No suicidality. No anxiety or depression. No insomnia. Nursing notes and vitals signs are reviewed. Const: Vital Signs, click to edit/add: Vital Signs - 24 hr 06/14/24 18:44 Temperature 98.5 F Pulse Rate [Pulse Oximeter] 104 H Respiratory Rate 18 Blood Pressure [Ri ght Upper Arm] 134/81 Pulse Oximetry 98 Oxygen Delivery Me thod Room Air Course Vital Signs Vital signs: Initial Vital Signs Temperature 98.5 F 06/14/24 18:44 Temperature Source Temporal Artery Scan 06/14/24 18:44 Pulse Rate 104 H 06/14/24 18:44 Pulse Rhythm Regular 06/14/24 18:44 Respiratory Rate 18 06/14/24 18:44 Blood Pressure 134/81 06/14/24 18:44 Blood Pressure Mean 98 06/14/24 18:44 Blood Pressure Position Sitting 06/14/24 18:44 Pulse Oximetry 98 06/14/24 18:44 Oxygen Delivery Method Room Air 06/14/24 18:44 Vital Signs Temperature 98.5 F 06/14/24 18:44 Pulse Rate 104 H 06/14/24 18:44 Respiratory Rate 18 06/14/24 18:44 Blood Pressure 134/81 06/14/24 18:44 Pulse Oximetry 98 06/14/24 18:44 Oxygen Delivery Method Room Air 06/14/24 18:44 Temperature 98.5 F 06/14/24 18:44 Pulse Rate 104 H 06/14/24 18:44 Respiratory Rate 18 06/14/24 18:44 Blood Pressure 134/81 06/14/24 18:44 Pulse Oximetry 98 06/14/24 18:44 Oxygen Delivery Method Room Air 06/14/24 18:44 Medical Decision Making MDM Narrative Medical decision making narrative: This patient comes in reporting dysuria symptoms of increased frequency and a sense of incomplete voiding. She also has diffuse abdominal pain and back pain. She has had symptoms like this on and off over the past few weeks and did finish 7 day course of Bactrim which did not provide any relief. This was prescribed after urinalysis that was seen at Urgent Care. The urinalysis did not show sign of infection but she was prescribed this medicine anyway. Culture results then did show E coli but it was not sufficient colonies to establish a true infection. Today her urinalysis also is negative for infection. I did do CT scan of her abdomen and pelvis without contrast and this shows normal findings also. The patient appears to have an overactive bladder without any sign of infection. I did prescribe oxybutynin to attempt to attend to her symptoms and encouraged her to follow-up with her primary physician or OBGYN clinic. Lab Data Labs: Lab Results 06/14/24 Range/Units 18:52 Urine Color Yellow (Yellow) Urine Appearance Clear (Clear) Urine pH 6.0 (5.0-8.5) Ur Specific [place] 1.020 (1.000-1.030) Urine Protein Negative (Negative) Urine Glucose (UA) Negative (Negative) Urine Ketones Negative (Negative) Urine Blood Negative (Negative) Urine Nitrite Negative (Negative) Urine Bilirubin Negative (Negative) Urine Urobilinogen 0.2 (0.2-1.0) Ur Leukocyte Esterase Negative (Negative) Urine RBC 0-2 (0-2) Urine WBC 0-2 (0-5) Ur Squamous Epith Cells Many A (None-Few) Urine Bacteria Many A (None) Imaging Data CT scan - abdomen: Radiologist's impression: 1. No hydronephrosis or obstructive urolithiasis. 2. No acute abdominopelvic pathology. The etiology of the patient`s abdominal or flank pain is not elucidated on this examination. Discharge Plan Discharge Clinical Impression: Overactive bladder Patient Disposition: Home, Self-Care Condition: Stable Additional Instructions: Take medication as directed. Follow-up with primary physician or OBGYN clinic for ongoing management. Return if worsening. Prescriptions: New oxybutynin chloride 5 mg tablet extended release 24hr 5 mg PO DAILY Qty: 20 0RF No Action budesonide-formoterol [Symbicort] 80-4.5 mcg/actuation HFA aerosol inhaler 2 puff inhalation BID albuterol sulfate 90 mcg/actuation HFA aerosol inhaler 2 puff inhalation Q4-6H PRN (Reason: shortness of breath or wheezing) Qty: 8.5 0RF Actemra ACTPen 162 mg/0.9 mL pen injector subcut methylprednisolone 4 mg tablet 4 mg PO BID multivitamin Tablet 1 tab PO QAM Follow Up/Referrals: Provider,Not a Local [Primary Care Provider] - Stand Alone Forms: [facility] Info Instructions
--- NOTE | 2024-06-14 19:26 | CRLHL7_ITS ---
For Patients: As a result of the Century Cures Act, medical imaging exams and procedure reports are released immediately into your electronic medical record. You may view this report before your referring provider. If you have questions, please contact your health care provider. INDICATION: Flank pain. Dysuria. TECHNIQUE: Multiplanar CT examination of the abdomen and pelvis was performed without the use of intravenous contrast. COMPARISON: CT abdomen pelvis 12/10/2015. FINDINGS: Lower chest: No focal consolidation. Normal heart size. No pleural effusions or pneumothorax. Subsegmental atelectasis. Liver: Unremarkable. Gallbladder: Unremarkable. Biliary: Unremarkable. Pancreas: Within normal limits. Spleen: Unremarkable. Adrenal glands: Unremarkable. Renal/ureters/bladder: Normal in size. No obstructive uropathy. No hydronephrosis or obstructive urinary calculi. The ureters appear unremarkable. The bladder is within normal limits. Limited evaluation for renal masses without the use of intravenous contrast. Pelvis: Unremarkable uterus. No adnexal masses. Gastrointestinal: No bowel wall thickening or bowel obstruction. Normal appendix. No significant colonic diverticulosis. Mild colonic stool burden. Vasculature: No aortic aneurysm. No significant atherosclerotic calcifications. Lymph nodes: No pathologic lymphadenopathy by size criteria. Peritoneum: No free fluid or pneumoperitoneum. No drainable fluid collections. Abdominal wall/soft tissues: Unremarkable. Bones: No acute osseous abnormalities. IMPRESSION: 1. No hydronephrosis or obstructive urolithiasis. 2. No acute abdominopelvic pathology. The etiology of the patient`s abdominal or flank pain is not elucidated on this examination. Please note that all CT scans at this facility use dose modulation, iterative reconstruction, and/or weight-based dosing when appropriate to reduce radiation dose to as low as reasonably achievable. Dictated by Yeison Hernandez MD @ 06/14/2024 8:07:51 PM (Electronically Signed)
--- OUTSIDE RECORDS SUMMARY | 2024-06-14 20:36 | XMS_ITS | Encounter Summary ---
Author Organization [facility] Address [address] [place] [address] Care Team Providers Care Green Belt Name Role Phone Taco Quiroz MD Primary Care Provider [phone] Encounter Details Date Type Department Care Team (Late st Contact Info) Description 06/04/2024 E-Visit [facility] [address] [place] [address] Mychart, [place] [address] Social History Tobacco Use Types Packs/Day Years [...] on filedocumented in this encounter Care Teams Green Belt Relationship Specialty [place] [address] [place] [address] PCP - General 12/12/15 documented as of this encounter
--- OUTSIDE RECORDS SUMMARY | 2024-06-14 20:36 | XMS_ITS | Encounter Summary ---
Author Organization [facility] Address [address] [place] [address] Care Team Providers Care Betting Agency Counter Clerk Name Role Phone Taco Quiroz MD Primary Care Provider [phone] Reason for Referral * Medication Prior Authorization - Pending Review Specialty Diagnoses / Procedures Referred By Dung bojorquez Referred To Contact Diagnoses Morbid obesity with body mass index (BMI) of 45.0 to 49.9 in adult (HRC) Payal Ortega PA-C [address] [place] [address] Referral ID Status Reason Start Date Expiration Date V isits Requested Visits Authorized [id number] Pending Review 1 1 TAL COMPOSER Reason for Visit * Reason Comments Video Visit Follow-up Encounter Details Date Type Department Care Team (Late st Contact Info) Description 06/05/2024 8:00 AM DIGITAL COMPOSER Telemedicine [facility] [address] [facility] [address] [place] [address] Payal Ortega PA-C [address] [place], [place] [phone] Moderate persistent asthma, unspecified whether complicated (HRC) [...] Comments Blood Pressure 125/73 06/05/2024 7:59 AM DIGITAL COMPOSER Pulse - - Temperature - - Respiratory Rate - - Oxygen Saturation - - Inhaled Oxygen Concentration - - Weight 113.4 kg (250 lb) 06/05/2024 7:59 AM DIGITAL COMPOSER Height 157.5 cm (5' 2) 06/05/2024 7:59 AM DIGITAL COMPOSER Body Mass Index 45.73 06/05/2024 7:59 AM DIGITAL COMPOSER documented in this encounter Progress Notes * [...] needs a PA. Still swimming at the [facility] when she can. Has free weights at [...] ongoing symptoms. Awaiting results from testing with head rigger. She felt her healthiest around 170 lbs. [...] 1. Moderate persistent asthma, unspecified whether complicated ([facility]) J45.40 2. Morbid obesity with body mass index (BMI) of 45.0 to 49.9 in adult ([facility]) E66.01 Z68.42 3. Sjogren's syndrome, with unspecified organ involvement ([facility]) M35.00 4. 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 They consented to proceed. TAL COMPOSER documented in this encounter Nursing Notes * [...] meds Marion Mcarthur CMA 7:59 AM 06/05/2024 TAL COMPOSER documented in this encounter Plan of Treatment Not on file documented as of this encounter Visit Diagnoses Diagnosis Moderate persistent asthma, unspecified whether complicated (HRC)- Primary Morbid obesity with body mass index (BMI) of 45.0 to 49.9 in adult (HRC) Sjogren's syndrome, with unspecified organ involvement ([facility]) 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) documented in this encounter Care Teams Betting Agency Counter Clerk Relationship Specialty [place] [address] [place] [address] PCP - General 12/12/15 documented as of this encounter
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
--- OUTSIDE RECORDS SUMMARY | 2024-06-14 20:37 | XMS_ITS | Continuity of Care Document ---
Author Organization [facility] Address [address] [place] [address] Phone Care Team Providers Care Drawbridge Tender Name Role Phone Dayna Dhillon MD Unavailable [...] [facility], [address], [place], [address], tel:[phone] [facility] , No Information 5 Jacquie Mcintosh. [facility] [address], [place], [address], [place]. tel:[phone] Office/Outpa tient Visit, Est [facility], [address], [place], [address], [place] tel:[phone] Telehealth Sjogren syndrome with keratoconjun ctivitisOthe r snf (current) drug therapyRheum atoid arthritis w/o rheumatoid factor, multiple sitesRas 4 Jacquie Mcintosh. [facility] [address], [place], [address], [place]. tel:[phone] Referring Provider: Dayna Fajardo, [facility] [address], [place], [address]. tel:[phone] [facility], [address], [place], [address], [place] tel:[phone] [facility] , No Information 4 Jacquie Mcintosh. [facility] [address], [place], [address], [place]. tel:[phone] [facility], [address], [place], [address], [place] tel:[phone] [facility] , No Information 4 Jacquie Mcintosh. [facility] [address], [place], [address], [place]. tel:[phone] Office/Outpa tient Visit, Est [facility], [address], [place], [address], [place] tel:[phone] Telehealth Sjogren syndrome with keratoconjun ctivitisOthe r snf (current) drug therapyRayna ud's syndrome without gangreneRheu matoid arthritis w/o rheumatoid factor, multiple sitesPsorias is 4 Jacquie Mcintosh. [facility] [address], [place], [address], [place]. tel:[phone] Referring Provider: Dayna Fajardo, [facility] [address], [place], [address]. tel:[phone] Office/Outpa tient Visit, Est [facility], [address], [place], [address], [place] tel:[phone] [facility] Pain in right hipSjogren syndrome with keratoconjun ctivitisOthe r snf (current) drug therapyRayna ud's syndrome without gangreneOthe r psoriatic arthropathy 4 Jacquie Mcintosh. [facility] [address], [place], [address], [place]. tel:[phone] Referring Provider: Dayna Fajardo, [facility] [address], [place], [address]. tel:[phone] Office/Outpa tient Visit, Est [facility], [address], [place], [address], [place] tel:[phone] Telehealth Rheumatoid arthritis without rheumatoid factor, multiple sitesPain in right hipSjogren syndrome with keratoconjun ctivitisOthe r snf (current) drug therapy 4 Jacquie Mcintosh. [facility] [address], [place], [address], [place]. tel:[phone] Referring Provider: Dayna Fajardo, [facility] [address], [place], [address]. tel:[phone] Office/Outpa tient Visit, Est [facility], [address], [place], [address], [place] tel:[phone] Telehealth Rheumatoid arthritis without rheumatoid factor, multiple sitesSjogren syndrome with keratoconjun ctivitisOthe r superintendent terminal (current) drug therapyPain in right hip Sep-0 3 Jacquie Mcintosh. [facility] [address], [place], [address], [place]. tel:[phone] Referring Provider: Dayna Fajardo, [facility] [address], [place], [address]. tel:[phone] Office/Outpa tient Visit, Est [facility], [address], [place], [address], [place] tel:[phone] [facility] Rheumatoid arthritis without rheumatoid factor, multiple sitesOther snf (current) drug therapyPain in left ankleSjogren syndrome with keratoconjun ctivitis 3 Jacquie Mcintosh. [facility] [address], [place], [address], [place]. tel:[phone] Referring Provider: Dayna Fajardo, [facility] [address], [place], [address]. tel:[phone] Office/Outpa tient Visit, Est [facility], [address], [place], [address], [place] tel:[phone] Telehealth Rheumatoid arthritis without rheumatoid factor, multiple sitesItchOth er snf (current) drug therapy 3 Jacquie Mcintosh. [facility] [address], [place], [address], [place]. tel:[phone] Referring Provider: Dayna Fajardo, [facility] [address], [place], [address]. tel:[phone] Office/Outpa tient Visit, Est [facility], [address], [place], [address], [place] tel:[phone] [facility] Rheumatoid arthritis without rheumatoid factor, multiple sitesOther superintendent terminal (current) drug therapyPerso nal history of immunosuppre ssion therapyItch 2 Jacquie Mcintosh. [facility] [address], [place], [address], [place]. tel:[phone] Referring Provider: Dayna Fajardo, [facility] [address], [place], [address]. tel:[phone] [facility], [address], [place], [address], [place] tel:[phone] [facility] Personal history of immunosuppre ssion therapy 2 Jacquie Mcintosh. [facility] [address], [place], [address], [place]. tel:[phone] Referring Provider: Dayna Fajardo, [facility] [address], [place], [address]. tel:[phone] [facility], [address], [place], [address], [place] tel:[phone] [facility] Personal history of immunosuppre ssion therapy Jan-0 2 Jacquie Mcintosh. [facility] [address], [place], [address], [place]. tel:[phone] Office/Outpa tient Visit, Est [facility], [address], [place], [address], [place] tel:[phone] [facility] Rheumatoid arthritis without rheumatoid factor, multiple sitesFatigue Vitamin D deficiency, unspecifiedO ther superintendent terminal (current) drug therapy 2 Jacquie Mcintosh. [facility] [address], [place], [address], [place]. tel:[phone] Referring Provider: Dayna Fajardo, [facility] [address], [place], [address]. tel:[phone] Office/Outpa tient Visit, Est [facility], [address], [place], [address], [place] tel:[phone] [facility] Rheumatoid arthritis without rheumatoid factor, multiple sitesFatigue Vitamin D deficiencyOt her superintendent terminal (current) drug therapy 2 Jacquie Mcitnosh. [facility] [address], [place], [address], [place]. tel:[phone] Referring Provider: Dayna Fajardo, [facility] [address], [place], [place], [facility]. tel:[phone] Office/Outpa tient Visit, Est [facility], [address], [place], [address], [place] tel:[phone] Telehealth Rheumatoid arthritis without rheumatoid factor, multiple sitesAcute bronchitisOt her snf (current) drug therapy 2 Jacquie Mcintosh. [facility] [address], [place], [address], [place]. tel:[phone] Referring Provider: Dayna Fajardo, [facility] [address], [place], [address]. tel:[phone] Office/Outpa tient Visit, Est [facility], [address], [place], [address], [place] tel:[phone] Telehealth Rheumatoid arthritis without rheumatoid factor, multiple sitesOther superintendent terminal (current) drug therapy 1 Jacquie Mcintosh. [facility] [address], [place], [address], [place]. tel:[phone] Referring Provider: Dayna Fajardo, [facility] [address], [place], [address]. [phone] Office/Outpa tient Visit, Est [facility], [address], [place], [address], [place] tel:[phone] [facility] Rheumatoid arthritis without rheumatoid factor, multiple sitesSicca syndrome with keratoconjun ctivitisCoun seling, unspecifiedA bnormal weight gainOther superintendent terminal (current) drug therapy Oct- 1 Jacquie Mcintosh. [facility] [address], [place], [place], [facility], [place]. tel:[phone] Referring Provider: Dayna Fajardo, [facility] [address], [place], [facility]. [phone] Office/Outpa tient Visit, Est [facility], [address], [place], [address], [place] tel:[phone] Telehealth Rheumatoid arthritis without rheumatoid factor, multiple sitesOther snf (current) drug therapy 1 Jacquie Mcintosh. [facility] [address], [place], [address], [place]. tel:[phone] Referring Provider: Dayna Fajardo, [facility] [address], [place], [address]. tel:[phone] Office/Outpa tient Visit, Est [facility], [address], [place], [address], [place] tel:[phone] Telehealth Rheumatoid arthritis without rheumatoid factor, multiple sitesSicca syndrome with keratoconjun ctivitisCoun seling, unspecifiedO ther superintendent terminal (current) drug therapy Feb-0 4-202 1 Jacquie Mcintosh. [facility] [address], [place], [address], [place]. tel:[phone] Referring Provider: Dayna Fajardo, [facility] [address], [place], [address]. tel:[phone] Office/Outpa tient Visit, Est [facility], [address], [place], [address], [place] tel:[phone] Telehealth Rheumatoid arthritis w/o rheumatoid factor, multiple sitesCounsel ing, unspecifiedO ther superintendent terminal (current) drug therapy 0 Jacquie Mcintosh. [facility] [address], [place], [address], [place]. tel:[phone] Referring Provider: Dayna Fajardo, [facility] [address], [place], [address]. tel:[phone] Office/Outpa tient Visit, Est [facility], [address], [place], [address], [place] tel:[phone] Telehealth Rheumatoid arthritis w/o rheumatoid factor, multiple sitesPregnan t stateOther snf (current) drug therapy 0 Jacquie Mcintosh. [facility] [address], [place], [address], [place]. tel:[phone] Referring Provider: Dayna Fajardo, [facility] [address], [place], [address]. tel:[phone] Office/Outpa tient Visit, Est [facility], [address], [place], [address], [place] tel:[phone] [facility] Rheumatoid arthritis w/o rheumatoid factor, multiple sitesCounsel ing, unspecifiedO ther snf (current) drug therapy 9 Jacquie Mcintosh. [facility] [address], [place], [address], [place]. tel:[phone] Referring Provider: Dayna Fajardo, [facility] [address], [place], [address]. tel:[phone] Office/Outpa tient Visit, Est [facility], [address], [place], [address], [place] tel:[phone] [facility] Rheumatoid arthritis w/o rheumatoid factor, multiple sitesOther superintendent terminal (current) drug therapy 9 Jacquie Mcintosh. [facility] [address], [place], [address], [place]. tel:[phone] Referring Provider: Dayna Fajardo, [facility] [address], [place], [address]. tel:[phone] Office/Outpa tient Visit, Est [facility], [address], [place], [address], [place] tel:[phone] [facility] Rheumatoid arthritis w/o rheumatoid factor, multiple sitesSpasmOt her superintendent terminal (current) drug therapy 9 Jacquie Mcintosh. [facility] [address], [place], [address], [place]. tel:[phone] Referring Provider: Dayna Fajardo, [facility] [address], [place], [address]. tel:[phone] [facility], [address], [place], [address], [place] tel:[phone] [facility] Rheumatoid arthritis w/o rheumatoid factor, multiple sitesCounsel ing, unspecifiedF atigueOther snf (current) drug therapy 9 Jacquie Mcintosh. [facility] [address], [place], [address], [place]. tel:[phone] Referring Provider: Dayna Fajardo, [facility] [address], [place], [address]. tel:[phone] Office/Outpa tient Visit, Est [facility], [address], [place], [address], [place] tel:[phone] [facility] No Information 9 Jacquie Mcintosh. [facility] [address], [place], [address], [place]. tel:[phone] Referring Provider: Dayna Fajardo, [facility] [address], [place], [address]. tel:[phone] Office/Outpa tient Visit, Est [facility], [address], [place], [address], [place] tel:[phone] [facility] Rheumatoid arthritis w/o rheumatoid factor, multiple sitesSicca syndrome with keratoconjun ctivitisCoun seling, unspecifiedO ther snf (current) drug therapy 8 Jacquie Mcintosh. [facility] [address], [place], [address], [place]. tel:[phone] Referring Provider: Dayna Fajardo, [facility] [address], [place], [address]. tel:[phone] Office/Outpa tient Visit, Est [facility], [address], [place], [address], [place] tel:[phone] [facility] Seronegative RA, multiple sitesSicca syndrome with keratoconjun ctivitisOthe r superintendent terminal (current) drug therapyBody mass index (BMI) 40.0-44.9, adult Arash- 8 Jacquie Mcintosh. [facility] [address], [place], [address], [place]. tel:[phone] Referring Provider: Dayna Fajardo, [facility] [address], [place], [address]. tel:[phone] [facility], [address], [place], [address], [place] tel:[phone] [facility] , Seronegative RA, multiple sites 8 Lala Lafleur. [facility] [address], [place], [address], [place]. tel:[phone] Referring Provider: Miquel Barrientos, [facility] [address], [place], [address]. tel:[phone] Office/Outpa tient Visit, Est [facility], [address], [place], [address], [place] tel:[phone] [facility] Seronegative RA, multiple sitesSicca syndrome with keratoconjun ctivitisOthe r snf (current) drug therapy 8 Jacquie Mcintosh. [facility] [address], [place], [address], [place]. tel:[phone] Referring Provider: Dayna Fajardo, [facility] [address], [place], [address]. tel:[phone] Office/Outpa tient Visit, Est [facility], [address], [place], [address], [place] tel:[phone] [facility] Seronegative RA, multiple sitesSicca syndrome with keratoconjun ctivitisOthe r snf (current) drug therapy 8 Jacquie Mcintosh. [facility] [address], [place], [address], [place]. tel:[phone] Referring Provider: Dayna Fajardo, [facility] [address], [place], [address]. tel:[phone] Office/Outpa tient Visit, Est [facility], [address], [place], [address], [place] tel:[phone] [facility] Seronegative RA, multiple sitesSicca syndrome with keratoconjun ctivitisOthe r snf (current) drug therapy 7 Jacquie Mcintosh. [facility] [address], [place], [address], [place]. tel:[phone] Referring Provider: Dayna Fajardo, [facility] [address], [place], [address]. tel:[phone] Office/Outpa tient Visit, New [facility], [address], [place], [address], [place] tel:[phone] [facility] Inflammatory polyarthropa thyFatigueSi cca syndrome with keratoconjun ctivitisMyal giaRash Jacquie Mcintosh. [facility] [address], [place], [address], [place]. tel:[phone] Referring Provider: Dayna Fajardo, [facility] [address], [place], [address]. tel:[phone] Family History Family Member Type Diagnosis Age At Onset Maternal grandmother Problem (finding) osteoarthritis Paternal grandfather Problem (finding) diabetes mellit us type 2 Paternal grandmother Problem (finding) hypertension Mother Problem (finding) asthma Sister Problem (finding) hypothyroidism Paternal aunt Problem (finding) hemochromatosis Immunizations Vaccine Date Status Comments COVID-19 Pfizer administered Note: 2020 ; Source: Other Provider Payers Payer name Insurance type Covered republican ID Authoriza tion(s) [employer] BL [id number] Social History Type Description Quantity Date Captured [...]
== END 2024-06-14 21:00 | disposition home or self-care (01) ==
PROVIDERS: Emergency Provider Emergency Medicine Emergency Medical Services
DX: N32.81 Overactive bladder (principal)
CPT/HCPCS: 74176; 81001; 87086; 87186; 99284